=== PATIENT | female | born 1995 | race Caucasian/White ===

== ENCOUNTER 2017-06-09 22:03 | Observation (INO) ==
[2017-06-09 23:02] LABS: Basophils % 0.2 %; Eosinophils # 0.1 K/mcL (0.0-0.6); Eosinophils % 0.4 %; Hematocrit 34.7 % (35.3-44.9); Hemoglobin 11.7 g/dL (11.5-15.4); Immature Granulocytes % 0.4 % (0-4); Lymphocytes # 1.5 K/mcL (0.6-4.6); Lymphocytes % 12.3 %; Mean Corpuscular HGB Conc 33.7 g/dL (31.6-35.5); Mean Corpuscular Hemoglobin 28.7 pg (28.0-33.3); Mean Platelet Volume 11.2 fL (9.4-12.4); Monocytes # 0.7 K/mcL (0.0-1.3); Monocytes % 5.8 %; Neutrophils # 9.6 K/mcL (1.6-8.9); Platelet Count 307 K/mcL (140-400); Red Blood Count 4.08 M/mcL (3.82-4.97); Red Cell Distribution Width 13.4 % (11.5-14.5); Segmented Neutrophils % 80.9 %
[2017-06-09 23:07] LABS: Prothrombin Time 11.1 Seconds (9.4-12.1)
[2017-06-09 23:25] LABS: BUN/Creatinine Ratio 12 (6-26); Blood Urea Nitrogen 9 mg/dL (6-20); Calcium 8.8 mg/dL (8.6-10.3); Carbon Dioxide 23 mEq/L (23-29); Chloride 104 mEq/L (98-107); Glucose 95 mg/dL (70-105); Osmolality,Calculated 278 (280-300); Potassium 4.1 mEq/L (3.5-5.1); Sodium 135 mEq/L (136-145); Troponin I < 0.03 ng/mL (< 0.04); eGFR For African Americans > 60 (> 60); eGFR For Non-African Americans > 60 (> 60)
[2017-06-09 23:52] LABS: Bilirubin,Urine Small (Negative); Blood,Urine Negative (Negative); Clarity,Urine Turbid (Clear); Color,Urine Dark Yellow (Yellow); Glucose,Urine (UA) Normal (Normal); Ketones,Urine Trace mg/dL (Negative); Leukocyte Esterase,Urine Negative (Negative); Nitrite,Urine Negative (Negative); Protein,Urine 30 mg/dL (Neg-Trace); Specific Gravity,Urine > 1.030 (1.010-1.025); Urobilinogen,Urine Normal (Normal)
[2017-06-09 23:55] LABS: Bacteria,Urine None Seen per hpf (None-Few); Squamous Epithelial Cell,Urine Many per lpf (None-Few)
--- NOTE | 2017-06-09 23:56 | Emergency Department Note ---
Disposition Clinical Impression: Chest pain of uncertain etiology, with 38 completed weeks gestation Abdominal pain Qualifiers: Abdominal location: generalized Qualified Code(s): R10.84 - Generalized abdominal pain Disposition: Admitted As Inpatient Condition: Fair Instructions: Chest Pain (ED) Referrals: Elke Ratliff DO [Primary Care Provider] - Forms: ED Satisfaction Letter Chest Pain HPI - General Chief Complaint: ED Chest Pain Stated Complaint: cp/38 wks preg Source: patient Mode of arrival: ambulatory Limitations: no limitations Vital Signs Reviewed: Yes Nursing Notes Reviewed: Yes - History of Present Illness HPI Narrative: 22-year-old female presents emergency Department with multiple complaints. Patient states within the past 24 hours she has developed acute chest pressure that is in the center of her chest that does not radiate and is fairly constant throughout the day. No other recent trauma or falls. Patient has shortness of breath that is associated with chest pain and with exertion. Patient states that she has had mild shortness of breath with her however it became much worse today. Patient denies fever, coughing, vomiting, diarrhea or other rashes. Patient is 38 weeks with a scheduled for 06/17/[address] Starr and is currently having suprapubic abdominal pain, back pain and vaginal pressure. No recent trauma. Patient denies vaginal bleeding. She is unsure if there is a small amount of liquid drainage from the vagina. Patient was initially told to present to labor and delivery who sent her to the emergency department for further evaluation of her chest pain. Severity scale (1-10): 8 - Related Data Previous Rx's Medication Instructions Recorded Azithromycin [Azithromycin 6-Tab 250 mg PO DAILY #6 tab 12/05/15 Pack] Cyclobenzaprine HCl 5 mg PO TID PRN #30 tablet 12/05/15 Ibuprofen [Motrin] 800 mg PO Q6-8H PRN #30 tablet 12/05/15 Nitrofurantoin Monohyd/M-Cryst 100 mg PO BID #20 capsule 04/06/17 [Macrobid 100 mg Capsule] Allergies Allergy/AdvReac Type Severity Reaction Status Date / Time Amoxicillin Allergy Hives Verified 07/25/15 07:49 Penicillins [PCN] Allergy Hives Verified 11/14/14 14:50 tramadol Allergy Itching Verified 07/25/15 08:25 All systems ED: reviewed and negative except as stated. Review of Systems: As Per HPI Chest Pain PMH - Past Medical History Medical history: Reports: other, non-contributory Surgical history: Reports: Psychiatric history: Reports: no psych history WHIPPER BEATER history: Reports: no WHIPPER BEATER history - Social History Smoking Status: Never smoker Alcohol use: Reports: none Drug use: Reports: none Physical Exam General: Alert and in no acute distress Skin: Warm, dry, intact Head: Normocephalic and atraumatic Neck: Supple, trachea midline and no tenderness Cardiovascular: tachycardia, no murmur, normal perfusion Respiratory: CTAB, no wheezing, cough, or respiratory distress Musculoskeletal: Normal strength, no tenderness, swelling or deformity GI: Soft, nontender, gravid abdomen. Neuro: A&O to person, place, time and situation. No focal deficits noted on exam Psychiatric: cooperative and appropriate mood and affect. Genital area examined with female nurse present. No evidence of vaginal bleeding or vaginal discharge or . Intravaginal exam was not performed due to possibility of rupture of amniotic sac - General Limitations: no limitations General appearance: alert, in no apparent distress Course Vital Signs Temperature 98.3 F 06/09/17 22:05 Pulse Rate 115 06/09/17 22:05 Respiratory Rate 21 06/09/17 22:05 Blood Pressure 136/77 06/09/17 22:05 O2 Sat by Pulse Oximetry 93 06/09/17 22:05 Temperature 98.3 F 06/09/17 22:05 Pulse Rate 100 06/10/17 00:27 Respiratory Rate 22 06/10/17 00:27 Blood Pressure 121/83 06/10/17 00:27 O2 Sat by Pulse Oximetry 100 06/10/17 00:27 Oxygen Delivery Oxygen Delivery Room Air Chest Pain - MDM Narrative Medical decision making narrative: Patient had a negative initial troponin. EKG showed sinus tachycardia with a rate of 113 without evidence of STEMI or other arrhythmia. D-dimer was ordered and an attempt to rule out PE. D-dimer returned significantly elevated although third term does have elevated d-dimer. I consulted the OB PA to confirm that the test of choice would be a CTA of the chest to rule out PE as this patient was tachycardic to 1:15, head symptoms of chest pain and shortness of breath and was satting 93% room air. CTA was obtained from the emergency department which did not show evidence of acute PE. Patient continued to have mild lower abdominal pain and back pain. stress testing was performed in the emergency department by the labor and delivery nurses. Patient will be admitted to labor and delivery by the OB PA, Josee Chavez and the plan of action was agreed upon by Dr. Bonlila - Medical Records Medical records reviewed: Yes I reviewed the patient's medical records. - Lab Data Lab results reviewed: Yes I reviewed the patient's lab results. Result diagrams: 06/09/17 22:44 06/09/17 22:44 Lab Results 06/09/17 06/09/17 06/09/17 Range/Units 22:44 22:44 22:44 WBC 11.9 H (4.3-11.1) K/mcL RBC 4.08 (3.82-4.97) M/mcL Hgb 11.7 (11.5-15.4) g/dL Hct 34.7 L (35.3-44.9) % MCV 85.0 (83.0-100.0) fL MCH 28.7 (28.0-33.3) pg MCHC 33.7 (31.6-35.5) g/dL RDW 13.4 (11.5-14.5) % Plt Count 307 (140-400) K/mcL MPV 11.2 (9.4-12.4) fL Immature Gran % 0.4 (0-4) % Seg Neutrophils % 80.9 % Lymphocytes % 12.3 % Monocytes % 5.8 % Eosinophils % 0.4 % Basophils % 0.2 % Neutrophils # 9.6 H (1.6-8.9) K/mcL Lymphocytes # 1.5 (0.6-4.6) K/mcL Monocytes # 0.7 (0.0-1.3) K/mcL Eosinophils # 0.1 (0.0-0.6) K/mcL Basophils # 0.0 (0.0-0.2) K/mcL PT 11.1 (9.4-12.1) Seconds INR 1.0 APTT 24.0 L (26.0-36.0) Seconds D-Dimer 1763 H (0-500) ng/mLFEU Sodium 135 L (136-145) mEq/L Potassium 4.1 (3.5-5.1) mEq/L Chloride 104 (98-107) mEq/L Carbon Dioxide 23 (23-29) mEq/L BUN 9 (6-20) mg/dL Creatinine 0.75 (0.60-1.20) mg/dL Est GFR ( Amer) > 60 (> 60) Est GFR (Non-Af Amer) > 60 (> 60) BUN/Creatinine Ratio 12 (6-26) Glucose 95 (70-105) mg/dL Calculated Osmolality 278 L (280-300) Calcium 8.8 (8.6-10.3) mg/dL Troponin I < 0.03 (< 0.04) ng/mL Urine Color (Yellow) Urine Clarity (Clear) Urine pH (5.0-8.0) pH Units Ur Specific [place] (1.010-1.025) Urine Protein (Neg-Trace) mg/dL Urine Glucose (UA) (Normal) mg/dL Urine Ketones (Negative) mg/dL Urine Blood (Negative) Urine Nitrite (Negative) Urine Bilirubin (Negative) Urine Urobilinogen (Normal) mg/dL Ur Leukocyte Esterase (Negative) Urine Microscopic WBC (0-3) per hpf Ur Squamous Epith Cells (None-Few) per lpf Calcium Oxalate Crystal Urine Bacteria (None-Few) per hpf Ur Culture Indicated? (NO) 06/09/17 Range/Units 23:35 WBC (4.3-11.1) K/mcL RBC (3.82-4.97) M/mcL Hgb (11.5-15.4) g/dL Hct (35.3-44.9) % MCV (83.0-100.0) fL MCH (28.0-33.3) pg MCHC (31.6-35.5) g/dL RDW (11.5-14.5) % Plt Count (140-400) K/mcL MPV (9.4-12.4) fL Immature Gran % (0-4) % Seg Neutrophils % % Lymphocytes % % Monocytes % % Eosinophils % % Basophils % % Neutrophils # (1.6-8.9) K/mcL Lymphocytes # (0.6-4.6) K/mcL Monocytes # (0.0-1.3) K/mcL Eosinophils # (0.0-0.6) K/mcL Basophils # (0.0-0.2) K/mcL PT (9.4-12.1) Seconds INR APTT (26.0-36.0) Seconds D-Dimer (0-500) ng/mLFEU Sodium (136-145) mEq/L Potassium (3.5-5.1) mEq/L Chloride (98-107) mEq/L Carbon Dioxide (23-29) mEq/L BUN (6-20) mg/dL Creatinine (0.60-1.20) mg/dL Est GFR ( Amer) (> 60) Est GFR (Non-Af Amer) (> 60) BUN/Creatinine Ratio (6-26) Glucose (70-105) mg/dL Calculated Osmolality (280-300) Calcium (8.6-10.3) mg/dL Troponin I (< 0.04) ng/mL Urine Color Dark Yellow (Yellow) Urine Clarity Turbid A (Clear) Urine pH 6.0 (5.0-8.0) pH Units Ur Specific [place] > 1.030 H (1.010-1.025) Urine Protein 30 H (Neg-Trace) mg/dL Urine Glucose (UA) Normal (Normal) mg/dL Urine Ketones Trace H (Negative) mg/dL Urine Blood Negative (Negative) Urine Nitrite Negative (Negative) Urine Bilirubin Small H (Negative) Urine Urobilinogen Normal (Normal) mg/dL Ur Leukocyte Esterase Negative (Negative) Urine Microscopic WBC 5-15 H (0-3) per hpf Ur Squamous Epith Cells Many H (None-Few) per lpf Calcium Oxalate Crystal Present Urine Bacteria None Seen (None-Few) per hpf Ur Culture Indicated? NO (NO) - Radiology Data Radiology results reviewed: Yes I reviewed the patient's radiology results. - EKG Data EKG attestation: Yes I reviewed and interpreted this EKG. EKG results narrative: ECG - interpreted by ED physician. Rate 113 sinus tachycardia, normal sinus rhythm, no STEMI, UT, QT intervals, and QRS within normal limits Heart Score - Score History: Slightly Suspicious EKG: Normal Age: Less than 45 Risk Factors: No risk factors known Troponin: Less than normal limit HEART Score Total: 0
[2017-06-10 00:09] LABS: Calcium Oxalate Crystals,Urine Present
[2017-06-10] MEDS ORDERED: Isovue-370 500 ML INFUS..BTL IV ONE (00:38)
[2017-06-10 02:44] VITALS: BP 118/59
[2017-06-10 03:46] LABS: Amphetamine Screen,Urine Negative ng/mL (Cutoff=1000); Barbiturate Screen,Urine Negative ng/mL (Cutoff=200); Benzodiazepines Screen,Urine Negative ng/mL (Cutoff=200); Cannabinoid Screen,Urine Negative ng/mL (Cutoff = 50); Cocaine Screen,Urine Negative ng/mL (Cutoff= 300); Opiate Screen,Urine Negative ng/mL (Cutoff=300); Phencyclidine Screen,Urine Negative ng/mL (Cutoff=25)
--- NOTE | 2017-06-10 04:10 | OB/GYN Progress Note ---
Date of Encounter: 06/10/17 Time of Encounter: 04:07 - Assessment and Plan (1) 38 weeks gestation of Current Visit: Yes Status: Acute (2) Encounter for suspected PROM, with rupture of membranes not found Current Visit: Yes Status: Acute speculum exam shows normal vaginal discharge of . Nitrazine and fern negative. Reactive NST tracing, Discharge home with labor and when to return to [facility] precautions. Dr. Bonilla stated okay to discharge after reactive NST Subjective - Subjective Interval history: 38+[address] [facility] following ED evaluation for SOB. No acute process found in ED. Pt reports good movement, denies vaginal bleeding. Pt states feels occasional contractions and thinks she might be leaking fluid. Pt states she still has sore throat and feels chest congestion, denies chest pain. Antepartum ROS: loss of fluid, movement normal, contractions, no vaginal bleeding Objective - Vital Signs Vital Signs: Vital Signs Temp Pulse Resp BP 06/10/17 02:44 97.9 F 96 16 118/59 06/10/17 02:27 16 116/58 - Exam FHR: auscultation normal FHR comments: Baseline 135 Abdomen: Present: normal appearance, soft, gravid Cervical dilation: /-2 - Labs Labs: Abnormal lab results WBC 11.9 K/mcL (4.3-11.1) H 06/09/17 22:44 Hct 34.7 % (35.3-44.9) L 06/09/17 22:44 Neutrophils # 9.6 K/mcL (1.6-8.9) H 06/09/17 22:44 APTT 24.0 Seconds (26.0-36.0) L 06/09/17 22:44 D-Dimer 1763 ng/mLFEU (0-500) H 06/09/17 22:44 Sodium 135 mEq/L (136-145) L 06/09/17 22:44 Calculated Osmolality 278 (280-300) L 06/09/17 22:44 Urine Clarity Turbid (Clear) A 06/09/17 23:35 Ur Specific [place] > 1.030 (1.010-1.025) H 06/09/17 23:35 Urine Protein 30 mg/dL (Neg-Trace) H 06/09/17 23:35 Urine Ketones Trace mg/dL (Negative) H 06/09/17 23:35 Urine Bilirubin Small (Negative) H 06/09/17 23:35 Urine Microscopic WBC 5-15 per hpf (0-3) H 06/09/17 23:35 Ur Squamous Epith Cells Many per lpf (None-Few) H 06/09/17 23:35
--- NOTE | 2017-06-12 19:10 | Electrocardiograph Report ---
[address] [address] Test Date: 2017-06-09 Pat Name: Klaudia Hardy Department: 104 Room: [facility] Gender: F Supervisor [employer]: DOLORES : 1995 Requested By: Merrick Greene Order Number: [id number] Reading MD: Malena Valladares Measurements Intervals [place] Rate: 113 P: 22 RI: 120 QRS: 56 QRSD: 87 T: 7 QT: 321 QTc: 388 Interpretive Statements SINUS TACHYCARDIA ABNORMAL RHYTHM ECG Electronically Signed On 06-12-2017 19:08:46 EDT by Malena Valladares
== END 2017-06-10 04:09 | disposition home or self-care (01) ==
LOC: EMEROO 22:03 → 1NENULAB 22:03
PROVIDERS: ADMIT Advanced Practice Midwife; ATTEND Advanced Practice Midwife

== ENCOUNTER 2017-06-17 09:59 | Inpatient (IN) ==
[2017-06-17] MEDS ORDERED: Oxytocin 20 units/ LR 1000 mL 20 UNIT/1,000 ML BAG IVC ONE (10:15)
[2017-06-17] MEDS ORDERED: Famotidine 20 MG/2 ML VIAL IVP ONE (10:15)
[2017-06-17] MEDS ORDERED: Ringers Solution, Lactated 1,000 ML IVC SCH (10:15)
[2017-06-17] MEDS ORDERED: Clindamycin 900 MG/50 ML 900 MG/50 ML IV.SOLN IVPB ONE (10:15)
[2017-06-17] MEDS ORDERED: Ringers Solution, Lactated 1,000 ML IVC ONE (10:15)
[2017-06-17] MEDS ORDERED: Metoclopramide 10 MG/2 ML VIAL IVP ONE (10:15)
[2017-06-17] MEDS ORDERED: Oxytocin 20 units/ LR 1000 mL 20 UNIT/1,000 ML BAG IVC SCH ×2 (10:15→19:28)
[2017-06-17] MEDS ORDERED: Gentamicin 400 MG in 0.9 % Sodium Chloride 100 ML IVPB ONE (10:15)
[2017-06-17 11:00] LABS: Basophils % 0.3 %; Eosinophils % 0.1 %; Hematocrit 36.5 % (35.3-44.9); Hemoglobin 12.1 g/dL (11.5-15.4); Immature Granulocytes % 0.6 % (0-4); Lymphocytes % 21.2 %; Mean Corpuscular HGB Conc 33.2 g/dL (31.6-35.5); Mean Corpuscular Hemoglobin 28.1 pg (28.0-33.3); Mean Corpuscular Volume 84.7 fL (83.0-100.0); Mean Platelet Volume 11.1 fL (9.4-12.4); Monocytes # 0.5 K/mcL (0.0-1.3); Monocytes % 3.5 %; Neutrophils # 10.6 K/mcL (1.6-8.9); Platelet Count 365 K/mcL (140-400); Red Blood Count 4.31 M/mcL (3.82-4.97); Segmented Neutrophils % 74.3 %
--- NOTE | 2017-06-17 11:27 | Anesthesia Evaluation PreOp ---
Date of Encounter: 06/17/17 Time of Encounter: 11:25 - Past History Planned Operation: repeat csection Cardiac History: Denies any Significant Hx Pulmonary History: Denies Any Significant HX IT APPLICATION SUPPORT ANALYST History: Denies Any Significant HX Other Medical History: Denies Any Significant HX Anesthesia History: No Prior Anesthetic Complications, Past Anesthesia : Yes (, 39 weeks) Alcohol Use: none Drug use: none Medications and Allergies Ranitidine HCl [Heartburn Relief] 150 mg PO DAILY 06/10/17 [History] 3 Allergy/AdvReac Type Severity Reaction Status Date / Time Amoxicillin Allergy Hives Verified 07/25/15 07:49 Penicillins [PCN] Allergy Hives Verified 11/14/14 14:50 tramadol Allergy Itching Verified 07/25/15 08:25 - Meds/Allergy Pre-op Review Medications Reviewed: Yes Allergies Reviewed: Yes Beta Blockers on Current Med List: No Anesthesia Results - Labs 06/17/17 10:40 Anesthesia Exam O2 Sat Height 1.57 m Weight 122.5 kg Height: 62 Weight: 270 - HEENT Pupil (Motor): Pupils equal Mallampati: II Teeth: Normal Oral Opening: Greater than 3 - IT APPLICATION SUPPORT ANALYST LOC: Oriented IT APPLICATION SUPPORT ANALYST Motor: Normal RUE, Normal LUE, Normal RLE, Normal LLE, Normal Face IT APPLICATION SUPPORT ANALYST Sensory: Normal: RUE, LUE, RLE, LLE, Face - Cardiac Rhythm: Regular Murmur: None JVD: No Carotid Bruit: No - Pulmonary Breath Sounds: bilateral Clear Respiratory Effort: Symmetrical Anesthesia Assess/Plan ASA Score: 3 (GERD, morbid obesity) Modified Marcos Scale for Level of Consciousness: Cooperative, oriented, and tranquil Anesthetic Plan: Regional Monitoring Plan: Standard Monitors Recovery Plan: PACU
[2017-06-17] MEDS ORDERED: *HR* Morphine 2 MG/ML SYRINGE IVP PRN (11:33)
[2017-06-17] MEDS ORDERED: *HR* HYDROmorphone (PF) 1 MG/ML SYRINGE IVP PRN (11:33)
[2017-06-17] MEDS ORDERED: *HR* OxyCODONE/APAP 5/325 TABLET PO PRN (11:33)
[2017-06-17] MEDS ORDERED: Ibuprofen 400 MG TABLET PO PRN (11:33)
[2017-06-17] MEDS ORDERED: Acetaminophen IV 1,000 MG/100 ML INFUS..BTL IVPB ONE (11:33)
[2017-06-17] MEDS ORDERED: Ondansetron 4 MG/2 ML VIAL IVP PRN ×2 (11:46→19:28)
--- NOTE | 2017-06-17 11:51 | OB/GYN History & Physical ---
Date of Encounter: 06/17/17 Time of Encounter: 11:47 Assessment and Plan (1) 39 weeks gestation of Current visit: Yes Status: Acute Patient has received care at [place] [facility]INDER MACHINE [facility]NIFE [facility]TER (2) BMI 50.0-59.9, adult Current visit: Yes Status: Chronic The patient has been followed closely for growth and blood sugar evaluation. She has a high risk for postdelivery infection (3) Obesity affecting in third trimester Current visit: Yes Status: Acute The patient has a monitored by serial growth scans and twice weekly NSTs. She has had an anesthesia consult which approved a regional block for her (4) H/O section complicating Current visit: Yes Status: Acute The patient has had 2 previous section and has signed consent for repeat section today. She declines a BPS History of Present Illness Chief complaint: Scheduled repeat c/s HPI: Ms. Hardy is a 22 year old female at 39 weeks with an EDC of 06/24/17 by LMP and US. Patient presents for a repeat , having had 2 previous cesareans. She declines a tubal ligation, informed consent was been obtained. She reports an active fetus, denies recent contractions but has had some in the past. She has had no vaginal bleeding or loss of fluid. Her blood type is O-, she is rubella immune, varicella equivocal. Her has been complicated by morbid obesity with a initial BMI of 50. She has not had a significant amount of weight gain during the . She did have a tox screen that was positive for marijuana. Her blood type is O- and she has received RhoGAM. She has had anemia during the and has received iron supplementation. She recently had a URI but it has resolved. Past Med Surg Social Fam HX - Past Medical History Attestation: Yes The following information was validated with the patient. Source: patient, old records reviewed Medical history: non-contributory, GERD, hyperlipidemia, other Psychiatric history: no psych history - Past Surgical History Surgical History: , other (T&A) - Social History Smoking Status: Never smoker Smokeless Tobacco Status: No Alcohol use: none Drug use: none Occupational status: unemployed Current living situation: Home Activity Level: Independent ambulation - Family History Mother Living Status: Still Living Hx Family Cardiac Disorders: No Hx Family Respiratory Disorders: No Hx Family Cancer: No Hx Family GI Disorders: No Hx Family Endocrine Disorder: No Hx Family Neuromuscular Disorders: No Hx Family Neurologic Disorders: No Hx Family HEENT Disorders: No Hx Family Autoimmune Disorders: No Obstetrical History - Pregnancies : 4 Term: 2 Ab's: 1 Livin - History/Complications History/Complications: 2 previous sections Medications and Allergies Ranitidine HCl [Heartburn Relief] 150 mg PO DAILY 06/10/17 [History] 3 Allergy/AdvReac Type Severity Reaction Status Date / Time Amoxicillin Allergy Hives Verified 07/25/15 07:49 Penicillins [PCN] Allergy Hives Verified 11/14/14 14:50 tramadol Allergy Itching Verified 07/25/15 08:25 Review of System OB All systems PM: reviewed and no additional remarkable complaints except as stated - Constitutional Constitutional ROS IM: as per HPI, fatigue - Gastrointestinal Gastrointestinal: cramping - Neurological Nerological: headache(s) Exam - Vital Signs Vital signs: Afebrile, vital signs stable - Constitutional Constitutional: well developed, well nourished, no acute distress, morbidly obese - HEENT HEENT: Normocephaly, Mucus Membranes Moist - Neck Neck exam: normal inspection, supple - Lungs Respiratory exam: CTAB - Cardiovascular Cardiovascular exam: RRR - Breasts Breast: bilateral: normal (Gravid) - Abdomen Abdomen: Present: bowel sounds normal, gravid, non tender - Extremities Extremities exam: normal inspection, pedal edema, warm Deep Tendon Reflex Grade: 3+ Normal But Brisk - Vulva Vulva: bilateral: normal - Vagina Vagina: Present: normal moisture - Cervix Dilation: 1 Effacement: 0 Station: -2 - Anus/Rectum Anus/Rectum: Present: normal perianal skin Results Result Diagrams: 06/17/17 10:40 Abnormal lab results WBC 14.3 K/mcL (4.3-11.1) H 06/17/17 10:40 Neutrophils # 10.6 K/mcL (1.6-8.9) H 06/17/17 10:40 All other labs normal. - VTE Documentation of Mechanical Device: Intermittent pneumatic compression device
[2017-06-17] MEDS ORDERED: *HR* FentaNYL (PF) 100 MCG/2 ML VIAL ONE ×2 (12:03→13:27)
[2017-06-17] MEDS ORDERED: Morphine Sulfate/PF 5mg/10mL Vial ONE (12:04)
[2017-06-17 12:30] LABS: Amphetamine Screen,Urine Negative ng/mL (Cutoff=1000); Barbiturate Screen,Urine Negative ng/mL (Cutoff=200); Benzodiazepines Screen,Urine Negative ng/mL (Cutoff=200); Cannabinoid Screen,Urine Negative ng/mL (Cutoff = 50); Cocaine Screen,Urine Negative ng/mL (Cutoff= 300); Opiate Screen,Urine Negative ng/mL (Cutoff=300); Phencyclidine Screen,Urine Negative ng/mL (Cutoff=25)
[2017-06-17] MEDS ORDERED: *HR* Propofol 200 MG/20 ML VIAL IVP ONE (12:40)
[2017-06-17] MEDS ORDERED: *HR* HYDROmorphone 20 MG/20 ML PCA IVC PRN ×2 (12:49→19:28)
[2017-06-17] MEDS ORDERED: *HR* Succinylcholine 200 MG/10 ML VIAL IVP ONE (13:18)
[2017-06-17] MEDS ORDERED: Ondansetron 4 MG/2 ML VIAL ONE (13:18)
[2017-06-17] MEDS ORDERED: Dexamethasone 4 MG/ML VIAL ONE (13:18)
[2017-06-17] MEDS ORDERED: *HR* Ropivacaine/PF 0.2% 20 ML VIAL ONE (13:29)
--- NOTE | 2017-06-17 14:10 | OB/GYN Procedure Note ---
Section - Date of procedure: 06/17/17 Preop diagnosis: desires repeat , other (BMI 50) Post-op diagnosis: same Procedure: repeat low transverse Surgeon: Whitney Starr Estimated blood loss (cc): 600 Was there an assistant finance director present: No Anesthesiologist: Hong Elena (spinal attempt) Manager Of Enterprise: Carlos Eduardo Rios Anesthesia Type: General (failed spinal, post op TAP block) section complications: none Disposition: L&D Recovery Room Specimens: Placenta, Cord segment, Cord blood - (s) A Infant Delivery Date: 06/17/17 Delivery Time: 13:10 Presentation: vertex Position: LOT Route of delivery: other (rpt c/s) Gender: Female Viability: Viable Pounds: 8 Ounces: 2 Gram Weight: 3.68 kg at 1 minute: 8 at 5 minutes: 8 Specimens collected: cord blood Placenta: uterine exploration, partial extraction Cord: 3 umbilical vessels - Narrative Narrative: The patient was taken to the operating room and after several attempts with spinal anesthesia by both LITHOGRAPHIC ETCHER and supervising anesthesiologist it was determined to proceed with general anesthesia. A Burt catheter was placed and concentrated clear urine was noted. The abdomen was prepped and draped in the usual sterile fashion. Timeout was completed. General anesthesia was then given. A Pfannenstiel skin incision was made through the previous scar. The subcutaneous tissue was sharply dissected down to the fascia. The fascia was incised in the midline and extended bilaterally with Major scissors.. 2 straight [place] clamps were placed on the inferior fascial edge and the fascia was bluntly and sharply dissected away from the rectus muscles. This was repeated superiorly. Peritoneum was bluntly entered. There were omental adhesions anteriorly which were lysed with a Bovie and hemostasis confirmed. Bladder blade was placed to protect the bladder. Vesicouterine peritoneum was incised and reflected inferiorly, and the bladder blade was replaced to protect the bladder. A transverse incision was then made on the uterus which is extended in a U fashion with bandage scissors. The amnion was bluntly entered with an Allis clamp. Thick meconium-stained amniotic fluid was seen. This was followed by the vertex delivery of a viable and vigorous female weighing 8# 2oz with Apgars of 8 at 1 minute and 8 at 5 minutes. Infant was placed on the maternal abdomen. The cord was clamped and cut after a delay. was handed to the nursery care team. The placenta was attempted to be delivered spontaneous but the umbilical cord started to avulse from the body of the placenta and the rest was manually extracted intact. The uterine cavity was digitally palpated and wiped clean with a moist lap sponge. There were no placental remnants identified. A ring forcep was used to make sure the cervix was dilated and then this was discarded off the field. Clamps were placed on the uterine angles and the uterine incision was closed using 0 Vicryl suture in a running, locking fashion. Gloves were changed. A second imbricating layer completed the uterine closure with 0 Vicryl suture. The uterus was then examined and noted to be hemostatic. The pelvis was then irrigated with a copious amount of sterile water. Again, good hemostasis was achieved and confirmed. Tubes and ovaries were inspected and noted to be grossly normal. The peritoneal edges and rectus muscles were then examined and hemostasis achieved. The fascia was then closed using 0 PDS loop in a running, nonlocking fashion. Subcutaneous tissue was irrigated with sterile water, good hemostasis was achieved then reapproximated with 3-0 Monocryl. The skin was then closed using a 4-0 Monocryl in a running subcuticular fashion. A dressing was placed. Estimated blood loss was 600cc. The Burt was noted to be draining clear yellow urine at the end of the procedure. All sponge and instrument counts are correct at the end of the procedure. The patient was taken to the recovery room in stable condition.
[2017-06-17] MEDS ORDERED: Bupivacaine/EPI 1:200k 0.25%PF 10 ML VIAL INFILT ONE (14:18)
[2017-06-17] MEDS ORDERED: Rho Immune Globulin 1,500 UNIT SYRINGE IM ONE (19:28)
[2017-06-17] MEDS ORDERED: Azithromycin 250 MG TABLET PO SCH (19:28)
[2017-06-17] MEDS ORDERED: Sennosides 8.6 MG TABLET PO PRN (19:28)
[2017-06-17] MEDS ORDERED: Metoclopramide 10 MG/2 ML VIAL IVP PRN (19:28)
[2017-06-17] MEDS ORDERED: Simethicone 80 MG TAB.CHEW PO PRN (19:28)
[2017-06-17] MEDS: Ibuprofen 600 MG TABLET PO SCH (20:47)
[2017-06-17] MEDS: Azithromycin 250 MG TABLET PO SCH (20:50)
[2017-06-17] MEDS: Famotidine 20 MG TABLET PO SCH (20:52)
[2017-06-18] MEDS: Ibuprofen 600 MG TABLET PO SCH ×4 (00:34→18:17)
[2017-06-18 06:04] LABS: Basophils % 0.1 %; Hematocrit 33.3 % (35.3-44.9); Immature Granulocytes % 0.4 % (0-4); Lymphocytes # 2.9 K/mcL (0.6-4.6); Lymphocytes % 20.5 %; Mean Corpuscular Hemoglobin 28.4 pg (28.0-33.3); Mean Corpuscular Volume 85.8 fL (83.0-100.0); Mean Platelet Volume 10.7 fL (9.4-12.4); Monocytes # 0.7 K/mcL (0.0-1.3); Monocytes % 4.6 %; Neutrophils # 10.4 K/mcL (1.6-8.9); Platelet Count 319 K/mcL (140-400); Red Blood Count 3.88 M/mcL (3.82-4.97); Red Cell Distribution Width 13.9 % (11.5-14.5); Segmented Neutrophils % 74.4 %
--- NOTE | 2017-06-18 06:35 | Anesthesia Evaluation Post Op ---
Date of Encounter: 06/18/17 Time of Encounter: 06:34 - Vital Signs Vital Signs: Vital Signs/O2 Sat, Most Current Temp Pulse Resp BP Pulse Ox 97.6 F 95 16 109/73 97 06/18/17 05:28 06/18/17 05:28 06/18/17 05:28 06/18/17 05:28 06/18/17 05:28 - Lungs Lungs: Clear Ascult./Percussion - Airway Airway: Non-obstructed - Cardiovascular Regular Rate - Mental Status Mental Status: Alert & Oriented, Answers Appropriately - Pain Pain Scale: 4 - Nausea Vomiting Nausea Vomiting: Not Present - Hydration Hydration: Tolerates oral liquids, Burt catheter
[2017-06-18] MEDS: Famotidine 20 MG TABLET PO SCH ×2 (09:00→20:42)
[2017-06-18] MEDS: Prenatal Vit/FA 1 EACH TABLET PO SCH (09:01)
--- NOTE | 2017-06-18 12:03 | OB/GYN Progress Note ---
Date of Encounter: 06/18/17 Time of Encounter: 12:01 - Assessment and Plan (1) S/P section Current Visit: Yes Status: Acute Pt doing well, pain well managed, Continue current management plan Anticipate discharge tomorrow. Subjective - Subjective Patient reports: voiding normally, pain well controlled Orestes: doing well Objective - Vital Signs Latest vital signs: Vital Signs Temp Pulse Resp BP Pulse Ox 06/18/17 08:01 97.9 F 96 16 111/65 96 06/18/17 05:28 97.6 F 95 16 109/73 97 06/18/17 00:30 97.9 F 97 16 104/71 97 06/17/17 20:29 98.2 F 98 14 117/83 97 06/17/17 18:50 97.7 F 95 16 125/83 94 06/17/17 17:45 97.7 F 91 14 125/81 94 06/17/17 17:15 97.7 F 93 14 116/80 95 06/17/17 16:53 98.4 F 87 14 123/82 95 Intake and Output 06/17/17 06/18/17 06/18/17 23:59 07:59 15:59 Intake Total 1000 / 1000 Output Total 450 / 450 750 / 750 200 / 200 Balance -450 / -450 -750 / -750 800 / 800 Intake: IV Fluids 1000 / 1000 Pitocin 20 unit In 1,000 ml @ 1000 / 1000 125 mls/hr IVC .Q8H [facility] Rx#: [id number] Output: Urine 200 / 200 Catheter 450 / 450 750 / 750 Other: Stool Characteristics Normal for Patient Weight 121.9 kg 118.297 kg Patient Weight 06/18/17 23:59 Weight 118.297 kg - Exam Lungs: bilateral: normal Chest: Normal S1, Normal S2 Extremities: Present: normal Abdomen: Present: normal appearance, soft, gravid Incision: Present: dressed (ROBI) Uterus: Present: firm (U) - Labs Labs: Laboratory Results - last 24 hr 06/17/17 06/17/17 06/18/17 10:40 14:40 05:56 WBC 14.0 H RBC 3.88 Hgb 11.0 L Hct 33.3 L MCV 85.8 MCH 28.4 MCHC 33.0 RDW 13.9 Plt Count 319 MPV 10.7 Immature Gran % 0.4 Seg Neutrophils % 74.4 Lymphocytes % 20.5 Monocytes % 4.6 Eosinophils % 0.0 Basophils % 0.1 Neutrophils # 10.4 H Lymphocytes # 2.9 Monocytes # 0.7 Eosinophils # 0.0 Basophils # 0.0 Urine Opiates Screen Negative Ur Barbiturates Screen Negative Ur Phencyclidine Scrn Negative Ur Amphetamines Screen Negative U Benzodiazepines Scrn Negative Urine Cocaine Screen Negative U Marijuana (THC) Screen Negative Screen NEGATIVE Baby's Blood Type O RH POSITIVE Mother's Blood Type O RH NEGATIVE Rhogam Indicated YES Rhogam Req for Mother 1
[2017-06-18] MEDS: *HR* OxyCODONE/APAP 5/325 TABLET PO PRN ×3 (12:27→20:42)
[2017-06-18] MEDS ORDERED: Rho Immune Globulin 1,500 UNIT SYRINGE IM ONE (18:23)
[2017-06-18] MEDS: Azithromycin 250 MG TABLET PO SCH (20:42)
[2017-06-19] MEDS: Ibuprofen 600 MG TABLET PO SCH ×3 (00:06→13:52)
[2017-06-19] MEDS: *HR* OxyCODONE/APAP 5/325 TABLET PO PRN ×3 (01:11→10:15)
[2017-06-19 08:10] VITALS: BP 114/74
--- NOTE | 2017-06-19 08:37 | Discharge Summary ---
Date of Encounter: 06/19/17 Time of Encounter: 08:33 - Discharge Diagnosis (1) S/P section Priority: Primary Status: Acute Comments: Doing well S/P Day 2. Pain well controlled with po meds. Ambulating and voiding well without difficulty. Passing gas, no BM since delivery. Tolerating regular diet. Lochia light and without clots. Infant in arms, states well. Desires to go home today. - Discharge Medications Prescriptions: Ibuprofen [Motrin] 600 mg PO Q6HR 7 Days #30 tablet OxyCODONE/APAP 5/325 [Percocet 5/325 MG] 1 each PO Q6HR PRN 7 Days #28 tablet PRN Reason: Moderate pain 4-6 Azithromycin [Zithromax] 500 mg PO Q24H 4 Days #4 tablet Docusate [Colace] 100 mg PO BID 10 Days #20 capsule Ferrous Sulfate 325 mg PO DAILY 30 Days #60 tablet Home Medications: Ranitidine HCl [Heartburn Relief] 150 mg PO DAILY 06/10/17 [History] Azithromycin [Zithromax] 500 mg PO Q24H 4 Days #4 tablet 06/19/17 [Rx] Docusate [Colace] 100 mg PO BID 10 Days #20 capsule 06/19/17 [Rx] Famotidine [Pepcid] 20 mg PO BID #0 tablet 06/19/17 [Rx] Ferrous Sulfate 325 mg PO DAILY 30 Days #60 tablet 06/19/17 [Rx] Ibuprofen [Motrin] 600 mg PO Q6HR 7 Days #30 tablet 06/19/17 [Rx] OxyCODONE/APAP 5/325 [Percocet 5/325 MG] 1 each PO Q6HR PRN 7 Days #28 tablet [Rx] Vit/FA 1 each PO DAILY tablet 06/19/17 [Rx] Simethicone [Gas-X] 80 mg PO TID PRN tab.chew 06/19/17 [Rx] Allergies/Adverse Reactions: 3 Allergy/AdvReac Type Severity Reaction Status Date / Time Amoxicillin Allergy Hives Verified 07/25/15 07:49 Penicillins [PCN] Allergy Hives Verified 11/14/14 14:50 tramadol Allergy Itching Verified 07/25/15 08:25 Data Procedures and tests throughout hospitalization: Laboratory Tests 05/04/0506/17/17 06/17/17 10:40 10:40 14:40 WBC 14.3 H RBC 4.31 Hgb 12.1 Hct 36.5 MCV 84.7 MCH 28.1 MCHC 33.2 RDW 14.0 Plt Count 365 MPV 11.1 Immature Gran % 0.6 Seg Neutrophils % 74.3 Lymphocytes % 21.2 Monocytes % 3.5 Eosinophils % 0.1 Basophils % 0.3 Neutrophils # 10.6 H Lymphocytes # 3.0 Monocytes # 0.5 Eosinophils # 0.0 Basophils # 0.0 Urine Opiates Screen Negative Ur Barbiturates Screen Negative Ur Phencyclidine Scrn Negative Ur Amphetamines Screen Negative U Benzodiazepines Scrn Negative Urine Cocaine Screen Negative U Marijuana (THC) Screen Negative Screen NEGATIVE Baby's Blood Type O RH POSITIVE Mother's Blood Type O RH NEGATIVE Rhogam Indicated YES Rhogam Req for Mother 1 06/18/17 05:56 WBC 14.0 H RBC 3.88 Hgb 11.0 L Hct 33.3 L MCV 85.8 MCH 28.4 MCHC 33.0 RDW 13.9 Plt Count 319 MPV 10.7 Immature Gran % 0.4 Seg Neutrophils % 74.4 Lymphocytes % 20.5 Monocytes % 4.6 Eosinophils % 0.0 Basophils % 0.1 Neutrophils # 10.4 H Lymphocytes # 2.9 Monocytes # 0.7 Eosinophils # 0.0 Basophils # 0.0 Urine Opiates Screen Ur Barbiturates Screen Ur Phencyclidine Scrn Ur Amphetamines Screen U Benzodiazepines Scrn Urine Cocaine Screen U Marijuana (THC) Screen Screen Baby's Blood Type Mother's Blood Type Rhogam Indicated Rhogam Req for Mother Labs on day of discharge: Labs from last 24 hours 06/17/17 14:40 Screen NEGATIVE Baby's Blood Type O RH POSITIVE Mother's Blood Type O RH NEGATIVE Rhogam Indicated YES Rhogam Req for Mother 1 Date of admission: 06/17/17 09:59 Primary care physician: Elke Ratliff DO Discharging clinician: Nayeli Dougherty Anticipated date of discharge: 06/19/17 - Patient Status Disposition: Home, Self-Care Condition: Good Functional capacity at discharge: independent ambulation Overall status at discharge: patient is progressing back to baseline - Discharge Instructions Follow Up With: Yandila,Reggina W, DO [Primary Care Provider] - Whitney Starr MD [Partnered Physician] - - Diet and Activity Activity: resume usual activities as tolerated Diet: advance to your usual diet Hospital Course Reason for admission: section, IUP at term Delivery: section Other procedures: none complications: none Discharge diagnosis: IUP at term delivered Burns baby: female Time spent discussing smoking cessation with patient: 3 to 10 minutes Time Attestation: Total time spent providing and/or coordinating discharge services: Time Spent: Less than 30 minutes - VTE Documentation of Mechanical Device: Intermittent pneumatic compression device Exam - Constitutional Vitals: Temp Pulse Resp BP Pulse Ox 98.3 F 96 18 114/74 96 06/19/17 08:09 06/19/17 08:09 06/19/17 08:09 06/19/17 08:09 06/18/17 20:45 General appearance IM: cooperative, A&O X 3, pleasant, no acute distress, answers questions appropriately - Respiratory Respiratory exam: Present: CTAB - Cardiovascular Cardiovascular exam IM: Present: RRR - GI/Abdominal GI/Abdominal exam IM: normal bowel sounds Incision: dry, dressed Additional comments: ROBI dressing intact, no change in shadowing. - Rectal Rectal exam: deferred - Uterine Tone: Firm Uterus Position: 1 Finger Below Umbilicus, Midline - Extremities Exam Extremities exam IM: Present: full ROM, normal inspection, radial pulses palpable and symmetrical - Neurological Exam Neurological exam: alert, normal gait, oriented X3
[2017-06-19] MEDS: Prenatal Vit/FA 1 EACH TABLET PO SCH (08:41)
== END 2017-06-19 14:30 | disposition home or self-care (01) | DRG 540 ==
LOC: 1NENULAB 09:59 → 1NENUOBS 16:54
PROVIDERS: ADMIT Obstetrics & Gynecology; ATTEND Obstetrics & Gynecology

== ENCOUNTER 2021-05-04 19:18 | Inpatient (IN) ==
[~2021-05-04 19:18] MED LIST: *HR* FentaNYL (PF) 100 MCG/2 ML VIAL ONE; *HR* HYDROmorphone PF 0.5 MG/0.5 ML SYRINGE IVP PRN; *HR* Morphine Sulfate/PF 10 MG/10 ML AMPUL ONE; *HR* Phenylephrine 10 MG/ML VIAL ONE; 0.9 % Sodium Chloride 250 ML ONE; Acetaminophen IV 1,000 MG/100 ML BAG IVPB ONE; Azithromycin 500 MG in 0.9 % Sodium Chloride 250 ML IVPB PRN; Clindamycin 900 MG/50 ML 900 MG/50 ML IV.SOLN IVPB ONE; EPHEDrine 50 MG/ML VIAL ONE; Famotidine 20 MG/2 ML VIAL IVP PRN; Metoclopramide 10 MG/2 ML VIAL IVP PRN; Naloxone 0.4 MG/ML INJ IVP PRN; Ondansetron 4 MG/2 ML VIAL IVP PRN; Ondansetron 4 MG/2 ML VIAL ONE; Promethazine 6.25 MG in Water for inj. (sterile) 20 ML IVPB PRN; Ringers Solution, Lactated 1,000 ML IVC ONE; Ringers Solution, Lactated 1,000 ML IVC SCH
[2021-05-04 19:30] LABS: Basophils % 0.3 %; Eosinophils % 0.3 %; Hematocrit 33.8 % (35.3-44.9); Hemoglobin 10.9 g/dL (11.5-15.4); Immature Granulocytes % 0.3 % (0-4); Lymphocytes % 13.4 %; Mean Corpuscular HGB Conc 32.2 g/dL (31.6-35.5); Mean Corpuscular Hemoglobin 27.8 pg (28.0-33.3); Mean Corpuscular Volume 86.2 fL (83.0-100.0); Mean Platelet Volume 10.6 fL (9.4-12.4); Monocytes # 0.5 K/mcL (0.0-1.3); Monocytes % 5.8 %; Neutrophils # 6.2 K/mcL (1.6-8.9); Platelet Count 385 K/mcL (140-400); Red Blood Count 3.92 M/mcL (3.82-4.97); Red Cell Distribution Width 11.8 % (11.5-14.5); Segmented Neutrophils % 79.9 %; White Blood Count 7.8 K/mcL (4.3-11.1)
[2021-05-04 19:39] LABS: Amphetamine Screen,Urine Negative ng/mL (Cutoff=1000); Barbiturate Screen,Urine Negative ng/mL (Cutoff=200); Benzodiazepines Screen,Urine Negative ng/mL (Cutoff=200); Cannabinoid Screen,Urine Negative ng/mL (Cutoff = 50); Cocaine Screen,Urine Negative ng/mL (Cutoff= 300); Opiate Screen,Urine Negative ng/mL (Cutoff=300); Phencyclidine Screen,Urine Negative ng/mL (Cutoff=25)
[2021-05-04] MEDS ORDERED: Acetaminophen 325 MG TABLET PO SCH (23:11)
[2021-05-04] MEDS ORDERED: Simethicone 80 MG TAB.CHEW PO PRN (23:11)
[2021-05-04] MEDS ORDERED: Ondansetron 4 MG/2 ML VIAL IVP PRN (23:11)
[2021-05-04] MEDS ORDERED: Metoclopramide 10 MG/2 ML VIAL IVP PRN (23:11)
[2021-05-04] MEDS ORDERED: Ibuprofen 600 MG TABLET PO SCH (23:53)
[2021-05-05] MEDS ORDERED: *HR* Nalbuphine 10 MG/ML AMPUL IV PRN (00:39)
[2021-05-05] MEDS ORDERED: Ringers Solution, Lactated 1,000 ML IVC SCH (00:45)
[2021-05-05] MEDS: Clindamycin 900 MG/50 ML 900 MG/50 ML IV.SOLN IVPB SCH ×3 (01:06→17:07)
[2021-05-05] MEDS: metroNIDAZOLE 500 MG TABLET PO SCH ×6 (01:08→19:57)
[2021-05-05] MEDS: Acetaminophen 325 MG TABLET PO SCH ×4 (03:28→20:15)
[2021-05-05] MEDS: *HR* OxyCODONE Immed Rel 5 MG TABLET PO PRN ×4 (06:19→21:14)
[2021-05-05 06:33] LABS: Basophils % 0.1 %; Hematocrit 27.8 % (35.3-44.9); Immature Granulocytes % 0.4 % (0-4); Lymphocytes # 0.7 K/mcL (0.6-4.6); Lymphocytes % 5.6 %; Mean Corpuscular HGB Conc 33.5 g/dL (31.6-35.5); Mean Corpuscular Hemoglobin 28.4 pg (28.0-33.3); Mean Platelet Volume 10.3 fL (9.4-12.4); Monocytes # 0.5 K/mcL (0.0-1.3); Monocytes % 3.8 %; Platelet Count 304 K/mcL (140-400); Red Blood Count 3.27 M/mcL (3.82-4.97); Red Cell Distribution Width 11.7 % (11.5-14.5); Segmented Neutrophils % 90.1 %
[2021-05-05 06:36] LABS: Hemoglobin 9.3 g/dL (11.5-15.4); White Blood Count 13.3 K/mcL (4.3-11.1)
[2021-05-05] MEDS: Prenatal Vit/FA 1 EACH TABLET PO SCH ×2 (08:21→08:27)
[2021-05-05] MEDS ORDERED: hydrOXYzine pamoate 25 MG CAPSULE PO ONE (09:45)
[2021-05-05] MEDS ORDERED: *HR* Nalbuphine 10 MG/ML AMPUL IV ONE (14:11)
[2021-05-05] MEDS ORDERED: GuaiFENesin/Codeine Oral Soln 5 ML UDC PO PRN (18:27)
[2021-05-05 22:21] LABS: Adenovirus Not Detected (Not Detect); Coronavirus 229E Not Detected (Not Detect); Coronavirus HKU1 Not Detected (Not Detect); Coronavirus NL63 Not Detected (Not Detect); Coronavirus OC43 Not Detected (Not Detect); Human Metapneumovirus Not Detected (Not Detect); Human Rhinovirus/Enterovirus Not Detected (Not Detect); SARS-CoV-2 Not Detected (Not Detect)
[2021-05-05 22:22] LABS: Bordetella Pertussis Not Detected (Not Detect); Chlamydophila pneumoniae Not Detected (Not Detect); Influenza A Subtype 2009 H1 Not Detected (Not Detect); Influenza B Not Detected (Not Detect); Mycoplasma pneumoniae Not Detected (Not Detect); Parainfluenza Virus 1 Not Detected (Not Detect); Parainfluenza Virus 2 Not Detected (Not Detect); Parainfluenza Virus 3 Not Detected (Not Detect); Parainfluenza Virus 4 Not Detected (Not Detect); Respiratory Syncytial Virus Not Detected (Not Detect)
[2021-05-06] MEDS: *HR* OxyCODONE Immed Rel 5 MG TABLET PO PRN ×3 (02:38→10:35)
[2021-05-06] MEDS: Acetaminophen 325 MG TABLET PO SCH ×2 (04:16→10:27)
[2021-05-06 07:30] VITALS: BP 110/76; PULSE 90; TEMP 98.1
[2021-05-06] MEDS ORDERED: Rho Immune Globulin 1,500 UNIT SYRINGE IM ONE (08:05)
[2021-05-06] MEDS: Albuterol 2.5 MG/3 ML NEBULIZER IH SCH ×2 (09:57)
[2021-05-06 09:59] VITALS: O2SAT 100
[2021-05-06] MEDS: Prenatal Vit/FA 1 EACH TABLET PO SCH (10:26)
== END 2021-05-06 11:36 | disposition home or self-care (01) | DRG 539 ==
LOC: 1NENULAB → 1NENUOBS 23:12
PROVIDERS: ADMIT Obstetrics & Gynecology; ATTEND Obstetrics & Gynecology